=== PATIENT | female | born 1985 | race Two or more races ===

== ENCOUNTER 2017-02-08 09:16 | Emergency (ER) | payer OTHER ==
--- NOTE | 2017-02-08 09:28 | EDPHY ---
H & P Time Seen by Provider: 02/08/17 09:28 HPI/ROS: CHIEF COMPLAINT: Vertigo, presyncope HISTORY OF PRESENT ILLNESS: The patient presents to the ED after she experienced an acute episode of vertigo and presyncope while at work. The patient has been struggling with vertigo intermittently for throughout the past several weeks. She was seen in urgent care. She apparently underwent Karoline maneuver with minimal improvement of her symptoms. She denies any fall or trauma. She has no complaints of headache or neck pain. She denies any progressive chiropractic manipulation. The patient denies significant past medical history. She has not taken any [id number] medications for management of her symptoms. Patient denies recent upper respiratory infection. She denies any complaints of tinnitus. REVIEW OF SYSTEMS: A comprehensive 10 point review of systems is otherwise negative aside from elements mentioned in the history of present illness. Source: Patient Exam Limitations: No limitations - Medical/Surgical History PMH: Past medical history: Noncontributory - Family History Significant Family History: No pertinent family hx - Social History Smoking Status: Never smoked - Physical Exam Exam: General Appearance: Alert, no distress Eyes: Pupils equal and round no pallor or injection ENT, Mouth: Mucous membranes moist Respiratory: There are no retractions, lungs are clear to auscultation Cardiovascular: Regular rate and rhythm Gastrointestinal: Abdomen is soft and nontender, no masses, bowel sounds normal Neurological: A&O, normal motor function, normal sensory exam, normal cranial nerves aside from mild horizontal nystagmus with rightward gaze Skin: Warm and dry, no rashes Musculoskeletal: Neck is supple nontender Extremities: symmetrical, full range of motion Constitutional: Initial Vital Signs Temperature (C) 36.7 C 02/08/17 09:27 Heart Rate 63 02/08/17 09:27 Respiratory Rate 17 02/08/17 09:27 Blood Pressure 132/61 H 02/08/17 09:27 O2 Sat (%) 95 02/08/17 09:27 O2 Delivery Mode Room Air Allergies/Adverse Reactions: No Known Allergies Allergy (Unverified 02/08/17 09:30) Home Medications: Medication Instructions Recorded Allergy Medication 02/08/17 Flonase Nasal [place] 02/08/17 Sertraline HCl 02/08/17 predniSONE [prednisone 20mg (RX)] 3 tab PO DAILY #15 tab 02/08/17 Medical Decision Making - Diagnostics EKG Interpretation: EKG: Complete interpretation has been separately recorded in the [employer] archive. Summary impression: Sinus rhythm ED Course/Re-evaluation: The patient presents to the ED with symptoms consistent with peripheral vertigo and mild symptoms of presyncope. The patient's EKG demonstrates no evidence of arrhythmia. The patient's blood pressure and heart rate are normal. The patient's neurologic examination does demonstrate mild horizontal nystagmus consistent with peripheral vertigo. The patient received oral meclizine. CBC, serum chemistries and test are within normal limits. The patient will be advised to take meclizine as needed for vertigo. She is given the contact number of our on-call ENT physician for any unimproved symptoms. The patient was re-evaluated at 11:20 a.m. and is feeling much better. She will be given a prescription for prednisone in the event that meclizine is not improving her symptoms of vertigo. She is discharged home with customary aftercare instructions and return precautions. Differential Diagnosis: Differential diagnosis considered includes labyrinthitis, benign positional vertigo, arrhythmia, ectopic , anemia, metabolic abnormality - Data Points Laboratory Results: Laboratory Results 02/08/17 10:10 02/08/17 10:10 02/08/17 02/08/17 02/08/17 10:10 10:10 10:10 WBC 7.94 10^3/uL 10^3/uL (3.80-9.50) RBC 4.87 10^6/uL 10^6/uL (4.18-5.33) Hgb 14.3 g/dL g/dL (12.6-16.3) Hct 42.0 % % (38.0-47.0) MCV 86.2 fL fL (81.5-99.8) MCH 29.4 pg pg (27.9-34.1) MCHC 34.0 g/dL g/dL (32.4-36.7) RDW 12.8 % % (11.5-15.2) Plt Count 204 10^3/uL 10^3/uL (150-400) MPV 12.6 fL H fL (8.7-11.7) Neut % (Auto) 80.2 % H % (39.3-74.2) Lymph % (Auto) 14.6 % L % (15.0-45.0) Powell % (Auto) 4.0 % L % (4.5-13.0) Eos % (Auto) 0.4 % L % (0.6-7.6) Baso % (Auto) 0.5 % % (0.3-1.7) Nucleat RBC Rel Count 0.0 % % (0.0-0.2) Absolute Neuts (auto) 6.37 10^3/uL 10^3/uL (1.70-6.50) Absolute Lymphs (auto) 1.16 10^3/uL 10^3/uL (1.00-3.00) Absolute Monos (auto) 0.32 10^3/uL 10^3/uL (0.30-0.80) Absolute Eos (auto) 0.03 10^3/uL 10^3/uL (0.03-0.40) Absolute Basos (auto) 0.04 10^3/uL 10^3/uL (0.02-0.10) Absolute Nucleated RBC 0.00 10^3/uL 10^3/uL (0-0.01) Immature Gran % 0.3 % % (0.0-1.1) Immature Gran # 0.02 10^3/uL 10^3/uL (0.00-0.10) Sodium 143 mEq/L mEq/L (134-144) Potassium 4.2 mEq/L mEq/L (3.5-5.2) Chloride 104 mEq/L mEq/L (97-110) Carbon Dioxide 23 mEq/l mEq/l (22-31) Anion Gap 16 mEq/L mEq/L (8-16) BUN 14 mg/dL mg/dL (7-23) Creatinine 0.6 mg/dL mg/dL (0.6-1.0) Estimated GFR > 60 Glucose 94 mg/dL mg/dL (70-100) Calcium 10.1 mg/dL mg/dL (8.5-10.4) TSH 1.410 uIU/mL uIU/mL (0.465-4.680) Beta HCG, Qual NEGATIVE Medications Given: Discontinued Medications Meclizine HCl (Meclizine Hcl) 25 mg PO EDNOW ONE Stop: 02/08/17 09:46 Last Admin: 10/06/17 10:01 Dose: 25 mg Departure - Departure Disposition: Home, Routine, Self-Care Clinical Impression: Benign positional vertigo Condition: Good Instructions: Vertigo (ED) Additional Instructions: 1. Please take meclizine as needed for vertigo. 2. Zofran as needed for nausea. 3. Please follow up with the Ear Nose Throat specialist you have been referred to for any symptoms which do not improve over the next week. 4. You have been given a short course of prednisone to see if that improves your symptoms. 5. Please contact the emergency department later this evening to check the results of your thyroid test. The number is . Referrals: Darrick Barreto MD [Medical Doctor] - As per Instructions Prescriptions: predniSONE [prednisone 20mg (RX)] 3 tab PO DAILY #15 tab
[2017-02-08 09:30] VITALS: PULSE 63; TEMP 98.1
[2017-02-08] MEDS ORDERED: MECLIZINE HCL 25 MG TAB PO ONE (09:45)
--- NOTE | 2017-02-08 10:12 | CPEKG ---
Heart Rate: 64 RR Interval: 938 P-R Interval: 156 QRSD Interval: 100 QT Interval: 392 QTC Interval: 405 P [place]: 49 QRS [place]: 22 T Wave [place]: -71 EKG Severity - BORDERLINE ECG - EKG Impression: SINUS RHYTHM Electronically Signed By: Kojo Adame 08-Feb-2017 12:55:17
[2017-02-08 10:29] LABS: % IMMATURE GRANULYOCYTES 0.3 % (0.0-1.1); ABSOLUTE IMMATURE GRANULOCYTES 0.02 10^3/uL (0.00-0.10); ADD DIFF? NO; ADD MORPH? NO; ADD SCAN? NO; ATYPICAL LYMPHOCYTE FLAG 0 (0-99); FRAGMENT RBC FLAG 0 (0-99); HEMOGLOBIN 14.3 g/dL (12.6-16.3); LEFT SHIFT FLG 0 (0-99); LIPEMIA HEMOLYSIS FLAG 90 (0-99); MEAN CELL HEMOGLOBIN 29.4 pg (27.9-34.1); MEAN CELL VOLUME 86.2 fL (81.5-99.8); MEAN PLATELET VOLUME 12.6 fL (8.7-11.7); PLATELET CLUMPS FLAG 80 (0-99); PLATELET COUNT 204 10^3/uL (150-400); RED BLOOD CELL COUNT 4.87 10^6/uL (4.18-5.33); RED CELL DISTRIBUTION WIDTH 12.8 % (11.5-15.2)
[2017-02-08 10:39] LABS: ANION GAP 16 mEq/L (8-16); CALCIUM 10.1 mg/dL (8.5-10.4); CARBON DIOXIDE 23 mEq/l (22-31); CHLORIDE 104 mEq/L (97-110); CREATININE 0.6 mg/dL (0.6-1.0); GLOMERULAR FILTRATION RATE > 60; GLUCOSE 94 mg/dL (70-100); POTASSIUM 4.2 mEq/L (3.5-5.2); SODIUM 143 mEq/L (134-144)
[2017-02-08 11:25] VITALS: BP 115/71; RESP 16; O2SAT 96
== END 2017-02-08 11:22 | disposition home or self-care (01) ==
LOC: CED 09:16
DX: H81.10 Benign paroxysmal vertigo, unspecified ear (principal)
CPT/HCPCS: 80048-PO; 84443-PO; 84703-PO; 85025-PO

== ENCOUNTER 2017-02-20 10:27 | Emergency (ER) | payer OTHER ==
[2017-02-20 10:38] VITALS: O2SAT 97
[2017-02-20] MEDS ORDERED: HYOSCYAMINE SULFATE 0.125 MG TAB PO ONE (11:07)
[2017-02-20] MEDS ORDERED: ONDANSETRON DISINTEGRATING 4 MG TAB PO ONE (11:08)
--- NOTE | 2017-02-20 11:56 | EDPHY ---
H & P Time Seen by Provider: 02/20/17 10:35 HPI/ROS: This patient presents with bloody diarrhea. She was seen at [facility] [place] urgent care earlier today for symptoms that worsened, prompting her visit here to the emergency department, brought in by private vehicle by her . She explains that she developed URI symptoms consisting of coryza 4 days prior to arrival associated with loose stools for 5 episodes a day. She had a fever peaking at 1:01 a.m. 4 days prior to arrival that resolved 2 days prior to arrival. For the 1st time she developed blood in her stools over the past 24 hours starting yesterday evening. While at [facility] care in [place] she had a normal urinalysis and blood draw with labs pending. She was given a stool collection kit for home and did collect stool and brought in with her and the collection kit but noticed more blood prompting increased concern. She reports mild generalized abdominal cramping that is episodic associated with her diarrhea. She has nausea but no vomiting. ROS: Constitutional: No high fevers or chills. No other complaints HEENT: Minimal coryza. No other complaints. Pulmonary: No cough. Cardiovascular: No lightheadedness GI: As per HPI. No hematemesis. No dark tarry stools. : No complaints. Last menstrual. Normal timing 2 weeks ago. Integumentary: No skin rash 10 point ROS is otherwise negative. Past Medical/Surgical History: Sinusitis treated with Augmentin with resolution of symptoms 8 weeks ago. Family history is negative for Crohn's disease or other colitis. Social History: The patient travel to [place] over the weekend with her for a wedding by automobile. Occasional alcohol. No drug use. No on else in her family currently has diarrhea. She does not think she had any contaminated food Smoking Status: Never smoked Physical Exam: Vital signs are normal General Appearance: Alert, no distress. Eyes: Pupils equal and round no pallor or injection. ENT, Mouth: Mucous membranes moist. Respiratory: There are no retractions, lungs are clear to auscultation. Cardiovascular: Regular rate and rhythm. Gastrointestinal: Hyperactive bowel sounds, soft, nontender Back: No CVA tenderness Neurological: GCS 15 Skin: Warm and dry, no rashes. Musculoskeletal: Neck is supple nontender. Extremities are symmetrical, full range of motion. Psychiatric: Mood and affect normal DIFFERENTIAL DIAGNOSIS: After history and physical exam differential diagnosis was considered for infectious diarrhea, autoimmune colitis unlikely, viral URI, C diff colitis Constitutional: Initial Vital Signs Temperature (C) 36.8 C 02/20/17 10:33 Heart Rate 73 02/20/17 10:33 Respiratory Rate 16 02/20/17 10:33 Blood Pressure 143/87 H 02/20/17 10:33 O2 Sat (%) 97 02/20/17 10:33 O2 Delivery Mode Room Air Allergies/Adverse Reactions: No Known Allergies Allergy (Verified 02/20/17 10:38) Home Medications: Medication Instructions Recorded Sertraline HCl 02/08/17 HYOSCYAMINE SULFATE [LEVSIN-SL] 0.125 - 0.25 mg SL Q6 PRN #12 02/20/17 tab.subl Ondansetron Odt [Zofran Odt] 4 - 8 mg PO Q4PRN PRN #4 tab 02/20/17 MDM/Departure - MDM Medications Given: Discontinued Medications Hyoscyamine Sulfate (Levsin, Hyomax-Sl) 0.125 mg PO EDNOW ONE Stop: 02/20/17 11:08 Last Admin: 02/20/17 11:20 Dose: 0.125 mg Ondansetron HCl (Zofran Odt) 8 mg PO EDNOW ONE Stop: 02/20/17 11:09 Last Admin: 02/20/17 11:19 Dose: 8 mg ED Course/Re-evaluation: Zofran with resolution of nausea Levsin with reduction and cramping Discussion: This patient appears clinically well. I reviewed the urinalysis fax from the [facility] [place] urgent care that is essentially normal.-no ketones no evidence of infection She provided stool samples-2 tubes collected at home view of the stool collection kit provided by the [facility] urgent care. That stool appears hand in color the 2nd tube does have a light red wine appearance to it. Stool studies are pending. Discussion: Patient is apprehensive due to the appearance of blood in her stool but appears clinically well. I suspect an infectious source diarrhea- likely viral given concurrent coryza. C diff colitis is also possibility given Augmentin use for recent sinusitis though after 8 weeks of time between that illness and now think this is unlikely. I held off on IV hydration this patient given that she is taking good p.o. intake after Zofran and has a UA negative for ketones. She has no belly tenderness or other concerning findings. Plan is to go home with light diet, Zofran for control of nausea and if stool studies are negative for pathogens she will follow up with Gastroenterology for further workup. She understands the need to return emergency department if she has any significant worsening of her symptoms despite the plan. - Depart Disposition: Home, Routine, Self-Care Clinical Impression: Bloody diarrhea Condition: Good Instructions: Acute Diarrhea (ED) Additional Instructions: Diagnosis: Bloody diarrhea Plan: Drink plenty fluids Light diet-bananas, rice, applesauce, toast, supine similar to feel improved Levsin for cramping if needed Zofran for nausea if needed Most of these episodes will resolve without requiring antibiotics. The lab tests and stool should be back in the next 24 hours detailing the cause of your diarrhea. If there is no pathogen discovered in the stool studies, you should follow up with Gastroenterology (Dr. Rm) for further evaluation. Return emergency department if you have any significant worsening of her symptoms such as onset of bloody vomiting, significant increase in blood in stool, unbearable pain or high fevers Follow up with primary care physician if you have any ongoing mild symptoms. Prescriptions: HYOSCYAMINE SULFATE [LEVSIN-SL] 0.125 - 0.25 mg SL Q6 PRN #12 tab.subl PRN Reason: abdominal cramping Ondansetron Odt [Zofran Odt] 4 - 8 mg PO Q4PRN PRN #4 tab PRN Reason: Vomiting Referrals: DARREN CUETO [Primary Care Provider] - As per Instructions Jonathan Rm MD [[facility] [place] Primary Care Provider] - As per Instructions
[2017-02-20 12:06] VITALS: BP 118/62; PULSE 64; RESP 18; TEMP 98
== END 2017-02-20 12:05 | disposition home or self-care (01) ==
LOC: CED 10:27
DX: R19.7 Diarrhea, unspecified (principal)